=== PATIENT | female | born 1940 | race Caucasian/White ===

== ENCOUNTER 2017-08-30 11:01 | Emergency (ER) | payer MEDICARE, OTHER ==
[~2017-08-30] VITALS: Ht 167.6 cm; Wt 51.0 kg
[2017-08-30 11:17] VITALS: BP 166/80
[2017-08-30 13:17] LABS: BASOPHILS # (AUTO) 0.02 x10^3/uL (0-0.1); BASOPHILS % (AUTO) 0 % (0-1); EOSINOPHILS % (AUTO) 0 % (1-7); LYMPHOCYTES # (AUTO) 0.37 x10^3/uL (1-3.4); LYMPHOCYTES % (AUTO) 3 % (22-44); MD NO; MEAN CORPUSCULAR HGB CONC 33.8 g/dL (32.4-35.8); MEAN CORPUSCULAR VOLUME 91.7 fL (80-100); MEAN PLATELET VOLUME 7.3 fL (7.4-10.4); MONOCYTES # (AUTO) 0.22 x10^3/uL (0.2-0.8); MONOCYTES % (AUTO) 2 % (2-9); NEUTROPHILS # (AUTO) 10.17 x10^3/uL (1.8-6.8); NEUTROPHILS % (AUTO) 94 % (42-75); PLATELET COUNT 250 x10^3/uL (130-400); RED CELL DISTRIBUTION WIDTH 13.3 % (9.6-15.2)
[2017-08-30 13:18] LABS: MICROSCOPIC INDICATED
[2017-08-30 13:26] LABS: CULTURE INDICATED? NO
[2017-08-30 13:27] LABS: ALBUMIN 3.7 g/dL (3.4-5.0); ANION GAP 7 mmol/L (5-15); CALCIUM 9.2 mg/dL (8.5-10.1); CHLORIDE 107 mmol/L (98-107); CREATININE 0.84 mg/dL (0.55-1.02)
[2017-08-30] MEDS ORDERED: KETOROLAC 30 MG/1 ML IM ONE (15:30)
[2017-08-30] MEDS ORDERED: KETOROLAC 30 MG/1 ML ONE (15:53)
== END 2017-08-30 17:11 | disposition home or self-care (01) ==
LOC: ED 16:30
DX: R10.9 Unspecified abdominal pain (principal); R30.0 Dysuria; R31.9 Hematuria, unspecified; Z90.710 Acquired absence of both cervix and uterus
CPT/HCPCS: 36415; 74176; 80048; 81001; 82040; 85025; 93005; 96372; 99285; J1885

== ENCOUNTER 2017-09-03 11:51 | Emergency (ER) | payer MEDICARE, OTHER ==
[~2017-09-03] VITALS: Ht 167.6 cm; Wt 52.5 kg
[2017-09-03] MEDS ORDERED: SODIUM CHLORIDE FLUSH 10ML SYR IVF ONE (12:30)
[2017-09-03] MEDS ORDERED: SODIUM CHLORIDE 0.9% 1,000ML IVBOLUS ONE (12:30)
[2017-09-03 12:43] LABS: BASOPHILS # (AUTO) 0.02 x10^3/uL (0-0.1); BASOPHILS % (AUTO) 0 % (0-1); EOSINOPHILS # (AUTO) 0.04 x10^3/uL (0-0.4); EOSINOPHILS % (AUTO) 1 % (1-7); LYMPHOCYTES # (AUTO) 0.82 x10^3/uL (1-3.4); LYMPHOCYTES % (AUTO) 9 % (22-44); MD NO; MEAN CORPUSCULAR HEMOGLOBIN 31.3 pg (27.0-34.8); MEAN CORPUSCULAR HGB CONC 33.9 g/dL (32.4-35.8); MEAN CORPUSCULAR VOLUME 92.3 fL (80-100); MEAN PLATELET VOLUME 7.2 fL (7.4-10.4); MONOCYTES # (AUTO) 0.48 x10^3/uL (0.2-0.8); MONOCYTES % (AUTO) 6 % (2-9); NEUTROPHILS # (AUTO) 7.45 x10^3/uL (1.8-6.8); NEUTROPHILS % (AUTO) 85 % (42-75); PLATELET COUNT 271 x10^3/uL (130-400); RED BLOOD COUNT 4.68 x10^6/uL (3.82-5.3); RED CELL DISTRIBUTION WIDTH 13.1 % (9.6-15.2)
[2017-09-03 12:54] LABS: ALANINE AMINOTRANSFERASE 14 U/L (12-78); ALBUMIN 3.5 g/dL (3.4-5.0); ANION GAP 6 mmol/L (5-15); CALCIUM 8.9 mg/dL (8.5-10.1); CHLORIDE 106 mmol/L (98-107); CREATININE 0.71 mg/dL (0.55-1.02)
[2017-09-03 12:57] LABS: ALKALINE PHOSPHATASE 75 U/L (45-117); BILIRUBIN,TOTAL 0.5 mg/dL (0.2-1.0); TOTAL PROTEIN 7.1 g/dL (6.4-8.2)
[2017-09-03 14:43] LABS: CULTURE INDICATED? YES; MICROSCOPIC INDICATED
[2017-09-03] MEDS ORDERED: CEFTRIAXONE PMX 1GM/50ML 50 ML ONE (15:29)
[2017-09-03] MEDS ORDERED: KETOROLAC 30 MG/1 ML ONE (15:29)
[2017-09-03] MEDS ORDERED: CEFTRIAXONE PMX 1GM/50ML 50 ML IV ONE (15:30)
[2017-09-03] MEDS ORDERED: KETOROLAC 30 MG/1 ML IVPush ONE (15:30)
[2017-09-03 16:12] VITALS: BP 143/76
== END 2017-09-03 16:27 | disposition home or self-care (01) ==
LOC: ED 15:59
DX: N30.01 Acute cystitis with hematuria (principal); M54.5 Low back pain
CPT/HCPCS: 36415; 80053; 81001; 85025; 87086; 96361; 96365; 96375; 99284; J0696; J1885; J7030

== ENCOUNTER 2019-06-14 11:20 | Inpatient (IN) | payer MEDICARE, OTHER ==
[~2019-06-14] VITALS: Ht 170.2 cm; Wt 46.9 kg
--- NOTE | 2019-06-14 11:45 | NUR ---
PT HERE TODAY AFTER GLF THIS MORNING ON [employer]- [place]. STATES SHE HIT THE SIDEWALK WITH HER HEAD. DENIES LOC. DIFFICULTY GETTING BACK UP BECAUSE OF BACK PAIN THAT SHE HAS HAD FOR A LONG TIME WELL WRIST PAIN PREVENTING HER FROM LIFTING HERSELF UP.. STATES THIS HAPPENED APPROX 1-2 HOURS AGO. DENIES N/V/SEIZURE ACTIVITY. STATES HEAD DOES NOT HURT A LOT BUT BILATERAL WRIST PAIN PRESENT. PRESENTS WITH LEFT WRIST SWELLING. CURRENTLY RESTING ON GURNEY. NADN. PROVIDED WITH WARM BLANKET. PA AT BEDSIDE. PT'S AT BEDSIDE.
--- NOTE | 2019-06-14 11:54 | NUR ---
ICE BAGS PROVIDED FOR BILATERAL WRISTS.
--- NOTE | 2019-06-14 12:12 | NUR ---
PT TO CT NOW.
[2019-06-14 12:18] LABS: BASOPHILS # (AUTO) 0.01 x10^3/uL (0-0.1); BASOPHILS % (AUTO) 0 % (0-1); EOSINOPHILS # (AUTO) 0.02 x10^3/uL (0-0.4); EOSINOPHILS % (AUTO) 0 % (1-7); LYMPHOCYTES % (AUTO) 5 % (22-44); MD NO; MEAN CORPUSCULAR HEMOGLOBIN 30.8 pg (27.0-34.8); MEAN CORPUSCULAR HGB CONC 32.7 g/dL (32.4-35.8); MEAN CORPUSCULAR VOLUME 94.4 fL (80-100); MEAN PLATELET VOLUME 7.3 fL (7.4-10.4); MONOCYTES % (AUTO) 4 % (2-9); NEUTROPHILS # (AUTO) 9.29 x10^3/uL (1.8-6.8); NEUTROPHILS % (AUTO) 91 % (42-75); PLATELET COUNT 264 x10^3/uL (130-400); RED CELL DISTRIBUTION WIDTH 13.1 % (9.6-15.2)
[2019-06-14 12:28] LABS: ALBUMIN 3.5 g/dL (3.4-5.0); ANION GAP 7 mmol/L (5-15); CALCIUM 8.8 mg/dL (8.5-10.1); CHLORIDE 106 mmol/L (98-107); CREATININE 0.66 mg/dL (0.55-1.02)
[2019-06-14 13:00] LABS: TROPONIN I < 0.015 ng/mL (0.000-0.045)
--- NOTE | 2019-06-14 13:27 | NUR ---
RADIOLOGY CALLED FOR TIME TO WHEN TESTS ARE TO BE PERFORMED. RADIOLOGIST STATES THEY ARE ON THEIR WAY TO PERFORM TESTS NOW.
--- NOTE | 2019-06-14 13:55 | NUR ---
RADIOLOGY AT BEDSIDE NOW.
--- NOTE | 2019-06-14 15:10 | NUR ---
PT AMBULATORY WITH STEADY GAIT TO [facility] NOW. BEING HELPED BY SO.
--- NOTE | 2019-06-14 15:20 | NUR ---
[facility] LOMBARDO AT BEDSIDE NOW PLACING PT IN GOWN, CONNECTING HER TO MONITOR, AND PLACING SPLINTS. PT RESTING ON JORGE.
--- NOTE | 2019-06-14 15:39 | NUR ---
PT BEING PLACED IN SPLINTS. PIV STARTED. VSS. DENIES NEEDS. NADN.
--- NOTE | 2019-06-14 16:38 | NUR ---
PT SITTING ON GURNEY. NADN. NEEDS LEFT ARM SPLINTED. AWARE OF POC RE: WAITING ON BED UPSTAIRS. VSS. DENIES NEEDS.
--- NOTE | 2019-06-14 17:04 | NUR ---
REPORT GIVEN TO OWEN LOZANO.
--- NOTE | 2019-06-14 17:11 | NUR ---
[facility] AT BEDSIDE ASSESSING PT NOW.
[2019-06-14] MEDS ORDERED: ONDANSETRON ODT 4 MG PO PRN (17:30)
[2019-06-14] MEDS ORDERED: SENNA/DOCUSATE TABLET PO PRN (17:30)
[2019-06-14] MEDS ORDERED: MORPHINE SULFATE 4 MG/ML, 1ML IVPush PRN (17:30)
[2019-06-14] MEDS ORDERED: ONDANSETRON 2MG/ML, 2ML IVPush PRN (17:30)
[2019-06-14] MEDS ORDERED: ACETAMINOPHEN 325 MG TABLET PO PRN (17:30)
[2019-06-14] MEDS ORDERED: hydrALAzine 20 MG/ML, 1ML IVPush PRN (17:30)
--- NOTE | 2019-06-14 17:55 | NUR ---
REPORT GIVEN TO OWEN JAMES ON MED TELE FLOOR.
[2019-06-14 18:42] VITALS: BP 165/82
[2019-06-14 18:43] VITALS: BP 152/80
[2019-06-14 18:44] VITALS: BP 136/74
[2019-06-14] MEDS: HEPARIN 5,000 UNITS/ML, 1ML SQ SCH (21:17)
[2019-06-14 22:17] LABS: MICROSCOPIC AUTO
[2019-06-14 22:18] LABS: CULTURE INDICATED? YES
[2019-06-15 01:02] VITALS: BP 145/69
[2019-06-15] MEDS: HEPARIN 5,000 UNITS/ML, 1ML SQ SCH ×3 (05:18→20:35)
[2019-06-15 08:59] VITALS: BP 135/71
[2019-06-15 12:24] VITALS: BP 134/72
[2019-06-15 18:59] VITALS: BP 141/71
[2019-06-16 01:31] VITALS: BP 127/60
[2019-06-16] MEDS: HEPARIN 5,000 UNITS/ML, 1ML SQ SCH ×2 (05:27→13:00)
[2019-06-16 06:16] LABS: BASOPHILS # (AUTO) 0.03 x10^3/uL (0-0.1); BASOPHILS % (AUTO) 1 % (0-1); EOSINOPHILS # (AUTO) 0.13 x10^3/uL (0-0.4); EOSINOPHILS % (AUTO) 3 % (1-7); LYMPHOCYTES % (AUTO) 20 % (22-44); MD NO; MEAN CORPUSCULAR HEMOGLOBIN 31.7 pg (27.0-34.8); MEAN CORPUSCULAR VOLUME 96.1 fL (80-100); MEAN PLATELET VOLUME 8.1 fL (7.4-10.4); MONOCYTES # (AUTO) 0.46 x10^3/uL (0.2-0.8); MONOCYTES % (AUTO) 9 % (2-9); NEUTROPHILS % (AUTO) 67 % (42-75); PLATELET COUNT 174 x10^3/uL (130-400); RED CELL DISTRIBUTION WIDTH 13.2 % (9.6-15.2)
[2019-06-16 06:25] LABS: ANION GAP 6 mmol/L (5-15); CALCIUM 8.5 mg/dL (8.5-10.1); CHLORIDE 111 mmol/L (98-107)
[2019-06-16 06:40] VITALS: BP 128/68
[2019-06-16 12:30] VITALS: BP 111/70
== END 2019-06-16 15:25 | disposition home health service (06) | DRG 543 ==
LOC: ED 15:57 → EDIP 17:09 → 4WST 18:08 → DCLOUNGE 06-16 15:12
PROVIDERS: ADMIT Family Medicine; ATTEND Family Medicine
PROC: 2W3CX1Z Immobilization of Right Lower Arm using Splint (ICD-10-PCS; principal; 2019-06-14)
PROC: 2W3DX1Z Immobilization of Left Lower Arm using Splint (ICD-10-PCS; 2019-06-14)
DX: M80.032A Age-related osteoporosis with current pathological fracture, left forearm, initial encounter for fracture (principal); M80.031A Age-related osteoporosis with current pathological fracture, right forearm, initial encounter for fracture; E44.0 Moderate protein-calorie malnutrition; S52.615A Nondisplaced fracture of left ulna styloid process, initial encounter for closed fracture; W18.30XA Fall on same level, unspecified, initial encounter; Y93.89 Activity, other specified; Y92.89 Other specified places as the place of occurrence of the external cause; Y99.8 Other external cause status; I49.9 Cardiac arrhythmia, unspecified; D72.829 Elevated white blood cell count, unspecified; I35.0 Nonrheumatic aortic (valve) stenosis; Z66 Do not resuscitate; R55 Syncope and collapse
CPT/HCPCS: 36415; 70450; 72125; 80048; 81001; 82040; 82306; 84145; 84443; 84484; 85025; 87086; 93005; 93306; G0378; J1644